=== PATIENT | female | born 1945 | race Caucasian/White ===

== ENCOUNTER 2017-04-29 02:09 | Emergency (ER) | payer MEDICARE, OTHER ==
[~2017-04-29] VITALS: Ht 162.6 cm; Wt 91.0 kg
[2017-04-29 02:37] VITALS: BP 145/91
[2017-04-29] MEDS ORDERED: ONDANSETRON HCL 4MG/2ML VIAL IV ONE (03:00)
[2017-04-29 03:07] LABS: BASOPHILS % 0.7 % (0.0-2.0); EOSINOPHILS % 3.1 % (0.0-5.0); HEMATOCRIT. 41.1 % (36.0-48.0); HEMOGLOBIN. 14.1 g/dL (12.0-16.0); MEAN CORPUSCULAR HEMOGLOBIN 35.1 pg (28.0-32.0); MEAN CORPUSCULAR VOLUME 102.1 fL (81.0-99.0); MEAN PLATELET VOLUME 7.2 fl (7.4-10.4); MONOCYTES % 7.3 % (2.0-8.0); NEUTROPHILS % 72.9 % (40.0-76.0); PLATELET 225 x1000/uL (130-400); RED BLOOD CELL COUNT 4.03 mill/uL (4.2-5.4); RED CELL DISTRIBUTION WIDTH 13.4 % (11.6-14.6)
[2017-04-29 03:11] LABS: INR 1.1; PROTHROMBIN TIME 11.4 sec (9.4-11.6)
[2017-04-29 03:55] LABS: CARBON DIOXIDE 25 mEq/L (21-32); CHLORIDE 106 mEq/L (98-107); TROPONIN I < 0.02 ng/mL (0.00-0.04)
== END 2017-04-29 05:48 | disposition home or self-care (01) ==
LOC: ER 03:32
DX: E11.649 Type 2 diabetes mellitus with hypoglycemia without coma (principal); T38.3X5A Adverse effect of insulin and oral hypoglycemic [antidiabetic] drugs, initial encounter; Z79.4 Long term (current) use of insulin; Y92.098 Other place in other non-institutional residence as the place of occurrence of the external cause; C25.9 Malignant neoplasm of pancreas, unspecified; R53.1 Weakness; I10 Essential (primary) hypertension; E78.00 Pure hypercholesterolemia, unspecified; H40.9 Unspecified glaucoma
CPT/HCPCS: 36415; 71045; 80053; 82962; 84484; 85025; 85610; 93005; 96374; 99285; J2405